=== PATIENT | male | born 1960 | race Caucasian/White ===

== ENCOUNTER 2023-05-10 13:09 | Emergency (ER) | payer SELFPAY ==
[~2023-05-10] VITALS: Ht 182.9 cm; Wt 80.0 kg
[2023-05-10 13:16] VITALS: BP 168/90; PULSE 148; RESP 16; TEMP 98.7; O2SAT 100
[2023-05-10] MEDS ORDERED: SODIUM CHLORIDE 0.9% 1,000 ML IV ONE (13:30)
== END 2023-05-10 13:44 | disposition left against medical advice (07) ==
LOC: ER 13:23
DX: R55 Syncope and collapse (principal)
CPT/HCPCS: 99283; 71045; 82962; 93005; J7030